=== PATIENT | male | born 1985 | race Caucasian/White ===

== ENCOUNTER 2020-05-19 15:16 | Emergency (ER) | payer MEDICAID ==
[~2020-05-19] VITALS: Ht 182.9 cm; Wt 81.6 kg
--- NOTE | 2020-05-19 15:20 | NUR ---
PT TAKEN TOB BED 12.
--- NOTE | 2020-05-19 15:27 | NUR ---
EMT at bedside for EKG.
[2020-05-19 15:28] VITALS: BP 125/80
[2020-05-19] MEDS ORDERED: NACL 0.9% 500 ML IV ONE (15:40)
[2020-05-19] MEDS ORDERED: ASPIRIN 81 MG TAB.CHEW PO ONE (15:40)
--- NOTE | 2020-05-19 15:40 | NUR ---
Dr. Lucas at pt bedside for further evaluation.
--- NOTE | 2020-05-19 15:40 | NUR ---
34 Y/O MALE C/O CHEST PAIN X1DAY 03/26 NON-RADIATING WITH SOME SOB PRESENT AND CLAMMY HANDS WITH SOME TINGLING PRESENT. PT STATES HE HAS HAD INTERMITTENT CHEST PAIN X1YEAR WITH 1 SYNCOPAL EPISODE. PT STATES HE HAS AN APPOINTMENT PENDING WITH [employer] MACHINE 05/23/20. DENIES PMH FAMILY PMH: [place] FOR FATHER, GRANDFATHER [place] AND [place], AND GREAT GRANDFATHER [place] NK[place]
--- NOTE | 2020-05-19 15:46 | NUR ---
computer technician at pt bedside.
[2020-05-19 16:09] LABS: BASOPHILS % (AUTO) 0.3 % (0.0-2.0); EOSINOPHILS # (AUTO) 0.1 K/uL (0-0.4); EOSINOPHILS % (AUTO) 1.6 % (0.0-4.0); HEMATOCRIT 40.6 % (36-52); HEMOGLOBIN 14.1 g/dL (12.0-18.0); LYMPHOCYTES # (AUTO) 2.1 K/uL (2.0-11.5); LYMPHOCYTES % (AUTO) 31.3 % (20.5-51.1); MEAN CORPUSCULAR HEMOGLOBIN 31 pg (27-31); MEAN CORPUSCULAR HGB CONC 35 g/dL (33-37); MEAN CORPUSCULAR VOLUME 88.8 fL (80-94); MONOCYTES # (AUTO) 0.7 K/uL (0.8-1.0); MONOCYTES % (AUTO) 9.9 % (1.7-9.3); NEUTROPHILS # (AUTO) 3.8 K/uL (1.8-7.7); NEUTROPHILS % (AUTO) 56.9 % (42.2-75.2); PLATELET COUNT (AUTO) 241 K/uL (140-450); RED BLOOD CELL COUNT(AUTO) 4.57 MIL/uL (4.20-6.10); RED CELL DISTRIBUTION WIDTH 12.5 % (11.6-13.7); WHITE BLOOD COUNT (AUTO) 6.6 K/uL (4.8-10.8)
[2020-05-19 16:31] LABS: ALBUMIN 4.4 g/dL (3.4-5.0); ANION GAP 12.8 (8-16); CARBON DIOXIDE 29.2 mmol/L (21-32); CREATININE 0.9 mg/dL (0.6-1.3); PROTHROMBIN TIME 9.9 secs (10.8-13.4); TOTAL BILIRUBIN 0.4 mg/dL (0.0-1.0)
[2020-05-19] MEDS ORDERED: PANTOPRAZOLE 40 MG INJ VIAL IVP ONE (16:55)
[2020-05-19] MEDS ORDERED: PANT40EC PO (16:58)
[2020-05-19 17:31] VITALS: BP 125/80
--- NOTE | 2020-05-19 17:31 | NUR ---
Patient discharged with v/s stable. Written and verbal after care instructions given and explained. Patient alert, oriented and verbalized understanding of instructions. Ambulatory with steady gait. All questions addressed prior to discharge. ID band removed. Patient advised to follow up with PMD. Rx of protonix 40mg PO daily given. Patient educated on indication of medication including possible reaction and side effects. Opportunity to ask questions provided and answered.
== END 2020-05-19 17:31 | disposition home or self-care (01) ==
LOC: MED 15:16
DX: K29.70 Gastritis, unspecified, without bleeding (principal); Z79.899 Other long term (current) drug therapy
CPT/HCPCS: 36415; 71045; 80053; 84484; 85025; 85610; 85730; 93005; 96374; 99285; C9113; J7030; 96361